=== PATIENT | female | born 1985 | race African-American/Black ===

== ENCOUNTER 2017-05-02 14:14 | Emergency (ER) | payer MEDICAID, OTHER ==
[~2017-05-02] VITALS: Ht 160 cm; Wt 65.0 kg
[~2017-05-02 14:14] MED LIST: AMOX500C2 PO; PREN-46 PO
[2017-05-02 14:24] VITALS: Ht 160 cm; Wt 65.0 kg
[2017-05-02] MEDS ORDERED: SOD CHLORIDE 0.9% 1,000 ML IV STA (14:25)
[2017-05-02] MEDS ORDERED: LEVETIRACETAM 1000 MG (PMX) 100 ML IVPB STA (14:25)
[2017-05-02] MEDS ORDERED: ACETAMINOPHEN 500 MG TAB PO STA (14:25)
[2017-05-02 15:05] LABS: HEMATOCRIT 41.9 % (37.0-47.0); HEMOGLOBIN 14.2 g/dl (12.0-16.0); MEAN CORPUSCULAR HEMOGLOBIN 31.9 pg (29.0-33.0); MEAN CORPUSCULAR HGB CONC 33.9 g/dl (32.0-37.0); MEAN CORPUSCULAR VOLUME 94.2 fl (82.0-101.0); PLATELET COUNT 238 10^3/UL (140-415); RED BLOOD COUNT 4.45 10^6/ul (4.20-5.40); RED CELL DISTRIBUTION WIDTH 13.2 % (11.5-14.5)
[2017-05-02 15:06] LABS: MEAN PLATELET VOLUME 9.9 fl (7.4-10.4); POSITIVE DIFF @See below
[2017-05-02 15:16] LABS: CALCIUM 9.2 mg/dl (8.4-10.2); CREATININE 0.66 mg/dl (0.44-1.00); POTASSIUM 3.9 mmol/L (3.5-5.1)
--- NOTE | 2017-05-02 15:18 | RADRPT ---
PROCEDURE: CT brain without contrast CLINICAL INDICATION: Seizures, head trauma TECHNIQUE: CT of the brain without contrast was performed on a multidetector CT scanner, with multi planar reformats. One or more of the following dose reduction techniques were used: Automated expos ure control, adjustment in mA and / or kV according to patient size, use of iterative reconstructive technique. CTDIvol = 45 mGy; DLP = 630 mGy-cm. COMPARISON: None available FINDINGS: No acute intracranial hemorrhage is identified. No extra-axial fluid collection is seen. There is no mass effect. No midline shift is identified. Ventricles and sulci are within normal limits for size and configuration. The density of the brain is within normal limits. Pichardo-white differentiation is preserved. Calvarium and skull base are intact. Mastoid air cells and imaged paranasal sinuses grossly clear. IMPRESSION: No evidence of acute intracranial pathology. RPTAT: VV .Burton Jackman MD, MD Date Time Electronically viewed and signed by .Burton Jackman MD, on 05/02/2017 15:17 .O/
[2017-05-02 17:53] LABS: EOSINOPHILS # 0.1 10^3/ul (0.0-0.5); EOSINOPHILS % (M) 1 % (0.0-7.0); LYMPHOCYTES # 2.7 10^3/ul (0.8-2.9); MONOCYTE # 0.5 10^3/ul (0.3-0.9); MONOCYTES % (M) 5 % (0-11)
[2017-05-02] MEDS ORDERED: LEVE500S8 PO (18:24)
--- NOTE | 2017-05-02 18:35 | ERD ---
ER Documentation Chief Complaint Date/Time DATE: 05/02/17 TIME: 18:25 Chief Complaint SEIZURE HPI This 31-year-old female presents with a seizure that was witnessed by her family. Family called paramedics. Her whole body was shaking for a few minutes according to the paramedics after which she had a brief postictal period that she is now coming out of. Patient is not sure if she had a seizure not last night. She did bite her tongue and urinary incontinence today. She is not sure if he might have hit her head recently. Any neurological symptoms currently except for feeling a little slow. ROS All systems reviewed and are negative except as per history of present illness. Medications Home Meds Active Scripts Levetiracetam* (Keppra*) 500 Mg/5 Ml Solution, 500 MG PO DAILY for 30 Days, BOTTLE Prov:DYLLANLINNEAJOMAR ALEXANDRA 05/02/17 Amoxicillin* (Amoxicillin*) 500 Mg Cap, 500 MG PO BID for 7 Days, CAP Prov:OSEI JACKSON PA-C 04/28/16 Reported Medications Vit #108/Iron/Fa ( ONE TABLET) 1 Each Tablet, 1 EACH PO DAILY 07/28/13 Allergies Allergies: Coded Allergies: No Known Allergy (Verified , 07/28/13) PMhx/Soc History of Surgery: Yes (c/section x2) Anesthesia Reaction: No Hx Neurological Disorder: No Hx Respiratory Disorders: No Hx Cardiac Disorders: No Hx Psychiatric Problems: No Hx Miscellaneous Medical Probl: No Hx Alcohol Use: Yes (occassional) Hx Substance Use: Yes (cocaine) Hx Tobacco Use: Yes Smoking Status: Never smoker Physical Exam Vitals Vital Signs Date Time Temp Pulse Resp B/P Pulse Ox O2 Delivery O2 Flow Rate FiO2 05/02/17 18:21 88 16 128/87 100 05/02/17 16:21 89 16 129/87 100 05/02/17 14:24 98.7 96 156 83/ 100 Physical Exam Const: [] No acute distress Head: Atraumatic Eyes: Normal Conjunctiva EOMI, PERRLA ENT: Normal External Ears, Nose and Mouth. Neck: Full range of motion..~ No meningismus. Resp: Clear to auscultation bilaterally Cardio: Regular rate and rhythm, no murmurs Abd: Soft, non tender, non distended. Normal bowel sounds Ext: No cyanosis, or edema distal pulses intact all 4 extremities Neur: Awake and alert 3, cranial nerves II through XII intact, no cerebellar deficits finger-nose testing, normal gait slightly slow to answer questions very mild confusion Psych: Normal Mood and Affect Result Diagram: 05/02/17 1430 05/02/17 1430 Results 24 hrs Laboratory Tests Test 05/02/17 14:30 05/02/17 14:34 White Blood Count 9.010^3/ul Red Blood Count 4.4510^6/ul Hemoglobin 14.2g/dl Hematocrit 41.9% Mean Corpuscular Volume 94.2fl Mean Corpuscular Hemoglobin 31.9pg Mean Corpuscular Hemoglobin Concent 33.9g/dl Red Cell Distribution Width 13.2% Platelet Count 29613^3/UL Mean Platelet Volume 9.9fl Segmented Neutrophils % (Manual) 64% Lymphocytes % (Manual) 30% Monocytes % (Manual) 5% Eosinophils % (Manual) 1% Nucleated Red Blood Cells % 0.0/100WBC Absolute Lymphocytes (Manual) 2.710^3/ul Lymphocytes # 2.710^3/ul Monocytes # 0.510^3/ul Absolute Monocytes (Manual) 0.410^3/ul Eosinophils # 0.110^3/ul Sodium Level 141mmol/L Potassium Level 3.9mmol/L Chloride Level 107mmol/L Carbon Dioxide Level 23mmol/L Anion Gap 15 Blood Urea Nitrogen 12mg/dl Creatinine 0.66mg/dl Glucose Level 93mg/dl Calcium Level 9.2mg/dl Bedside Glucose 94mg/dL Current Medications Medications (Trade) Dose Ordered Sig/[place] Route PRN Reason Start Time Stop Time Status Last Admin Dose Admin Sodium Chloride 1,000 ml @ 1,000 mls/hr Q1H STAT IV 05/02/17 14:25 05/02/17 15:24 DC 05/02/17 14:30 Levetiracetam (Keppra 1,000mg/ 100ml (Pmx)) 100 ml @ 400 mls/hr ONCE STAT IVPB 05/02/17 14:25 05/02/17 14:39 DC 05/02/17 14:44 Acetaminophen (Tylenol Tab) 1,000 mg ONCE STAT PO 05/02/17 14:25 05/02/17 14:27 DC Procedures/MDM New onset seizure disorder. Patient was briefly postictal in the emergency room and then had normal mental status. No signs of any intracranial balance and CAT scan, no laboratory abnormalities. No signs of infection. She was given a liter of normal saline and loaded with a gram of Keppra. Patient asymptomatic and was monitored for 4 hours in the emergency room where she had no more seizure activity. Both myself and Deven, the nurse, I have stressed the importance of her following up with a neurologist through her primary care doctor. workforce development vice president interpretation: Normal sinus rhythm without arrhythmia CT head interpretation: I see no acute process, no hemorrhage, no mass-effect no midline shift, no abnormal masses, no skull fracture. Departure Diagnosis: Primary Impression: New onset seizure Condition: Stable Patient Instructions: Seizure, New Onset, Unk Cause [Adult] Additional Instructions: Call your primary care doctor TOMORROW for an appointment during the next 2-3 days.See the doctor sooner or return here if your condition worsens before your appointment time. LINNEA MIJARES DO May 02, 2017 18:35
[2017-05-02 18:47] VITALS: BP 125/68; PULSE 98; RESP 18; TEMP 98.1
== END 2017-05-02 18:47 | disposition home or self-care (01) ==
LOC: E/R 14:14
DX: R56.9 Unspecified convulsions (principal)
CPT/HCPCS: 36415; 70450; 80048; 82962; 85025; 96374; J1953; J7030; Z7502; Z7610

== ENCOUNTER 2018-03-04 15:50 | Observation (INO) | END 2018-03-05 10:23 | disposition home or self-care (01) ==

== ENCOUNTER 2018-03-09 16:31 | Outpatient (CLI) | END 2018-03-09 23:47 | disposition home or self-care (01) ==